=== PATIENT | male | born 1965 | race Caucasian/White ===

== ENCOUNTER 2019-03-29 06:09 | Inpatient (IN) | payer OTHER ==
[2019-03-29] MEDS ORDERED: Pantoprazole 40 MG VIAL ONE (06:26)
[2019-03-29 06:48] LABS: #Eosinphils 0.1 thou/uL (0.0-0.7); #Lymphocytes 4.3 thou/uL (1.20-3.40); #Neutrophils 10.5 thou/uL (1.40-6.50); %Basophils 0.2 % (0.0-1.0); %Eosinophils 0.7 % (0.0-10.0); %Monocytes 6.1 % (0.0-10.0); %Neutrophils 66.1 % (42.0-75.0); Hemoglobin 8.2 g/dL (14.0-18.0); Mean Corpuscular HGB CONC 34.4 g/dL (32.0-36.0); Mean Corpuscular Hemoglobin 31.3 pg (27.0-31.0); Mean Corpuscular Volume 91.1 fL (78.0-98.0); Mean Platelet Volume 7.1 fL (7.4-10.4); Platelet Count 332 thou/uL (130-400); RBC Distribution Width 12.7 % (11.5-14.5); Red Blood Cell (RBC) Count 2.62 mill/uL (4.70-6.10); White Blood Cell (WBC) Count 15.9 thou/uL (4.8-10.8)
[2019-03-29 06:59] LABS: INR-International Normal Ratio 1.1; PTT 25.1 SEC (22.9-36.1); Prothrombin Time 14.1 SEC (12.0-14.7)
[2019-03-29 07:09] LABS: ALT (SGPT) 23 U/L (8-55); AST (SGOT) 21 U/L (5-34); Albumin 3.6 g/dL (3.5-5.0); Alkaline Phosphatase 97 U/L (40-110); Anion Gap 11 mmol/L (10-20); BUN (Urea Nitrogen) 30 mg/dL (8.4-25.7); Bilirubin, Total 0.4 mg/dL (0.2-1.2); Calc. Creatinine Clearance 0 mL/min (70-130); Calcium 8.1 mg/dL (7.8-10.44); Carbon Dioxide 27 mmol/L (22-29); Chloride 105 mmol/L (98-107); Estimated GFR-MDRD 89; Globulin 2.1 g/dL (2.4-3.5); Glucose 153 mg/dL (70-105); Potassium 3.8 mmol/L (3.5-5.1); Protein, Total 5.7 g/dL (6.0-8.3); Sodium 139 mmol/L (136-145)
[2019-03-29] MEDS ORDERED: Sodium Chloride 0.9% 1,000 ML IV SCH (10:00)
[2019-03-29] MEDS ORDERED: HumaLOG 300 UNITS/3 ML VIAL SC PRN ×2 (10:37)
[2019-03-29] MEDS ORDERED: Guaifenesin DM 100-10/5 ML UDCUP PO PRN (10:37)
[2019-03-29] MEDS ORDERED: Ondansetron PF 4 MG/2 ML Vial IVP PRN (10:37)
[2019-03-29] MEDS ORDERED: Senokot S 8.6-50 MG TAB PO PRN (10:37)
[2019-03-29] MEDS ORDERED: Dextrose 5% in Water 1,000 ML IV PRN (10:37)
[2019-03-29] MEDS ORDERED: Calcium Carbonate 500 MG ChewTAB PO PRN (10:37)
[2019-03-29] MEDS ORDERED: Acetaminophen 325 MG TAB PO PRN (10:37)
[2019-03-29] MEDS ORDERED: Dextrose 50% Abboject 50 ML SYRINGE SLOW IVP PRN (10:37)
[2019-03-29] MEDS ORDERED: Bisacodyl 10 MG SUPP PR PRN (10:37)
[2019-03-29] MEDS ORDERED: Pantoprazole 80 MG in Sodium Chloride 0.9% 100 ML IVP SCH (10:45)
[2019-03-29 11:40] LABS: Hemoglobin 7.6 g/dL (14.0-18.0)
[2019-03-29] MEDS: Sodium Chloride 0.9% 1,000 ML IV SCH (11:56)
[2019-03-29] MEDS ORDERED: Lidocaine 1% PF 5 ML VIAL ONE (12:45)
[2019-03-29] MEDS ORDERED: PROPOFOL 200 MG/20 ML VIAL ONE (12:45)
[2019-03-29 13:10] VITALS: BMI 39.6
[2019-03-29] MEDS ORDERED: Fentanyl 100 MCG/2 ML VIAL ONE (13:48)
--- NOTE | 2019-03-29 14:15 | HP ---
REASON FOR ADMISSION: GI bleed, acute blood loss anemia. HISTORY OF PRESENTING ILLNESS: The patient gives history of having dark stools for almost a week. He started to have blanquita blood from yesterday evening. This happened nearly 2 to 3 times. He admits to using Aleve and Motrin for left knee pain. No prior history of bleeding per rectum. He has had prior history of gastric bypass. The patient has felt dizzy when he tries to get up and move around. He has also had palpitations on minimal ambulation from 6:00 p.m. yesterday. No prior colonoscopy. PAST MEDICAL AND SURGICAL HISTORY: History of diabetes mellitus type 2, hypertension, gastric bypass done in 2004. The patient was 405 pounds and now weighs around 315 pounds. Tonsillectomy, left knee steroid shot on the 24 of January and is due for another shot on Wednesday with his orthopedic surgeon. CURRENT MEDICATIONS: He takes: 1. Amlodipine 10 mg daily. 2. Valsartan 320 mg p.o. daily. 3. Hydrochlorothiazide 25 mg daily. ALLERGIES: NO KNOWN DRUG ALLERGIES. PERSONAL HISTORY: Does not abuse alcohol or drugs. No history of smoking. FAMILY HISTORY: Mother at the age of 96 years from natural causes. Father at the age of 67 years, he has had history of [place] and CABG. CODE STATUS: Full. Power of banking attorney is his . REVIEW OF SYSTEMS: CONSTITUTIONAL: Negative for weight loss or gain, ability to conduct usual activities. SKIN: Negative for rash, itching. EYES: Negative for double vision, pain. ENT/MOUTH: Negative for nose bleeding, neck stiffness, pain, tenderness. CARDIOVASCULAR: Negative for palpitations, dyspnea on exertion, orthopnea. RESPIRATORY: Negative for shortness of breath, wheezing, cough, hemoptysis, fever or night sweats. GASTROINTESTINAL: Negative for poor appetite, abdominal pain, heartburn, nausea , vomiting, constipation, or diarrhea. GENITOURINARY: Negative for urgency, frequency, dysuria, nocturia. MUSCULOSKELETAL: Negative for pain, swelling. NEUROLOGIC/PSYCHIATRIC: Negative for anxiety, depression. ALLERGY/IMMUNOLOGIC: Negative for skin rash, bleeding tendency. PHYSICAL EXAMINATION: GENERAL: The patient is a 54-year-old male, who is currently not in any acute distress. VITAL SIGNS: Blood pressure 126/70, pulse 110 per minute, respiratory rate 20 per minute, temperature 98.5 degrees Fahrenheit, and saturating 98% on room air. NECK: Supple. No elevated JVD. HEENT: Eyes; extraocular muscles intact. Pupils reacting to light. Oral cavity, mucous membranes are moist. No exudates or congestion. CARDIOVASCULAR SYSTEM: S1 and S2 heard. Tachycardic. RESPIRATORY SYSTEM: Air entry 1+ bilateral. No rales or rhonchi. ABDOMEN: Soft. Bowel sounds heard. No tenderness, rigidity, or guarding. EXTREMITIES: Mild peripheral edema. No calf tenderness. VASCULAR SYSTEM: Peripheral pulses 1+ bilateral. No ischemic ulcerations or gangrene. CENTRAL NERVOUS SYSTEM: No gross focal deficits noted. The patient is alert, awake, and oriented well. PSYCHIATRIC SYSTEM: The patient's mood is euthymic. No hallucinations or delusions. LABORATORY DATA: White count of 15, hemoglobin and hematocrit of 8 and 23 on arrival. A repeat hemoglobin and hematocrit are 7.6 and 22, platelet count 332 , MCV is 91 with 66% neutrophils and 27% lymphocytes. PT, INR, and PTT within normal limits. Electrolytes are stable. BUN 30, creatinine 0.8, and serum glucose 153. Liver enzymes within normal limits. Albumin 3.6. CLINICAL IMPRESSION AND PLAN: The patient will be admitted to medical floor for acute blood loss anemia with gastrointestinal bleed. He will be kept n.p.o. for now. I have spoken to Dr. Rivera, who will be doing upper endoscopy. He will be on normal saline at 70 mL/h and Protonix drip until upper endoscopy. Hemoglobin and hematocrit q.6 hourly x3, a metabolic panel in the morning. We will hold off all his hypertensive medications for now in view of the patient likely having orthostasis due to GI bleed. The patient has had a gastric bypass and states that he eats like before without any restrictions in amount. He is not compliant with bariatric diet. Job ID: [id number] [facility]
[2019-03-29] MEDS ORDERED: HYDROmorphone 2 MG/ML VIAL SLOW IVP PRN (14:22)
[2019-03-29] MEDS ORDERED: Promethazine HCl 25 MG/ML VIAL IM PRN (14:22)
[2019-03-29] MEDS ORDERED: Promethazine HCl 25 MG/ML VIAL SLOW IVP PRN (14:22)
[2019-03-29] MEDS ORDERED: Ondansetron HCl/PF 4 MG/2 ML Vial IVP PRN (14:22)
--- NOTE | 2019-03-29 15:01 | CON ---
DATE OF CONSULTATION: 03/29/2019 ADDITIONAL REFERRING PHYSICIAN: Mahesh Porras MD REASON FOR CONSULTATION: GI bleeding, anemia due to blood loss. HISTORY OF PRESENT ILLNESS: Mr. John Paul Webster is a 54-year-old male, who lives in [place], [place]. The patient has a history of pain over both knees and has some swelling of the knees. He has seen an orthopedic doctor in [place] and has had a steroid injection three months ago. He is due to have another steroid injection next week. Recently, his left knee has been bothering with swelling and pain. He has been taking Aleve and ibuprofen on a regular basis. He also takes aspirin to get some relief from the knee pain. The patient had no abdominal pain, no nausea, and no vomiting. There is no prior history of any peptic ulcer disease. The patient has had a gastric bypass surgery I believe in 2005 in [place] and had lost from 404 pounds to 240. However, he started gaining the weight back again. Now, he weighs more than 300 pounds. The patient developed some black tarry stool approximately 10 days ago. The symptoms persisted and the stools got darker and darker five days ago. A couple of days ago, he started having some fresh blood and blood-stained stool. The patient also had some mild fatigue and weakness. No dizziness. No dyspnea. He came to the ER and was found to have anemia. His admitting CBC showed hemoglobin of 8.2, today dropping to 7.6. The patient has no abdominal pain. No dyspepsia. No history of any heartburn. No dysphagia or odynophagia. The patient had no similar episodes in the past. He had no relevant symptoms. ALLERGIES: NONE. SOCIAL HISTORY: He is . He does smoke a little bit, but nothing heavy. He says occasional cigarette. Drinks socially. No drug use. MEDICAL ILLNESS: 1. Hypertension, on medical therapy. 2. Obesity, status post gastric bypass surgery with weight loss. 3. Diabetes, not taking medicines with weight loss. 4. No heart disease, no lung disease, etc. SURGERIES: 1. Gastric bypass. 2. He has had a left knee injection 2 to 3 months ago. MEDICATION LIST: Reviewed. REVIEW OF SYSTEMS: CONSTITUTIONAL: No weight loss. He has good exercise tolerance. No fever or chills. HEENT: No headache. No TIA. Eyes, no impaired vision or diplopia. Ears; no hearing loss, no discharge. Nose, no nose bleed. Throat; no sore throat, no dysphagia. NECK: No stiffness or any limitation of movement. CARDIOVASCULAR SYSTEM: No chest pain. No palpitation. No dyspnea, orthopnea, or PND. LUNGS: No chronic coughing. No hemoptysis. GASTROINTESTINAL: No abdominal pain. No dysphagia, nausea, or vomiting. As I said, he has black tarry stool and also has rectal bleeding for the last 24 hours. MUSCULOSKELETAL: History of bilateral knee pains, has steroid injection of the left knee. NEUROPSYCHIATRY: No depression or anxiety. HEMATOLOGIC: Not known. PHYSICAL EXAMINATION: GENERAL: He is obese, appears well built, in no acute distress. He is awake, alert, and communicative. He is in no distress. VITAL SIGNS: Very stable. His pulse is 98, blood pressure 126/70. HEENT: Conjunctivae are clear. NECK: Supple. No adenitis or thyromegaly noted. CARDIOVASCULAR SYSTEM: First and second heart sounds heard. LUNGS: Clear to auscultation. ABDOMEN: Soft. Abdomen is nondistended. Abdomen is nontender. No organomegaly. No masses. EXTREMITIES: Reveal no edema. LABORATORY DATA: Admitting CBC shows mild anemia with hemoglobin at 8.2, hematocrit 23.8, platelet count 236,000, polymorphs 66, lymphocytes 27, monocytes 10, and WBC 15,900. Repeat H and H at 11:20 this morning, hemoglobin dropping to 7.6 and hematocrit 22.6. Chemistry panel shows normal lytes, BUN 30, creatinine 0.89, glucose 153, calcium 8.1, bilirubin 0.4. AST 21, ALT 23, alkaline phosphatase not drawn. Albumin 2.6. CLINICAL IMPRESSION: 1. A 54-year-old male with history of black tarry stool over the last 10 days. It got worse five days ago. For the last couple of days, he has been experiencing some bright red blood per rectum. The history is somewhat confusing. From the history, I felt it was most likely upper gastrointestinal bleeding. It is also possible that bleeding from right colon is also present with dark stools. The patient has had a previous gastric bypass surgery almost 14 years ago. From the history, I believe he most likely has upper gastrointestinal bleeding. His BUN is elevated mostly from the gastrointestinal bleeding. 2. Obesity. 3. Hypertension. 4. Diabetes mellitus, status post weight loss and not taking the medicines. 5. Bilateral arthritis of both knees. RECOMMENDATIONS: We will plan for an EGD as soon as possible today. I did talk to Mr. Webster and his and explained to them that he may need a colonoscopy because of history of rectal bleeding. The patient and the patient's want to actually go back to [place], that is their hometown, and they want to see a doctor there and they does not want to wait for the colonoscopy tomorrow. However, he has agreed for EGD today. I will perform the EGD today and make further recommendations. Job ID: [id number]
[2019-03-29] MEDS ORDERED: GoLYTELY 4,000 ml Bottle PO SCH (15:45)
--- NOTE | 2019-03-29 18:06 | OP ---
DATE OF PROCEDURE: 03/29/2019 PROCEDURE PERFORMED: Esophagogastroenteroscopy. PREOPERATIVE DIAGNOSES: A 54-year-old male with previous gastric bypass surgery many years ago. The patient presents with history of black tarry stool over the last 10 days. He is anemic. The patient also has had hematochezia at the same time in the last couple of days. The patient is undergoing EGE. POSTOPERATIVE DIAGNOSIS: Normal exam. DESCRIPTION OF PROCEDURE: The patient was placed on his left lateral position and was given sedation by Anesthesia Department. A Pentax video gastroscope under direct vision passed down the oropharynx, past the GE junction into the gastric pouch. The gastric pouch was very small. The anastomotic area appears very healthy. In the esophageal mucosa, no pathology seen. The patient had no coffee ground material or any bleeding in the gastric pouch. The scope advanced into the afferent loop. In the afferent loop, no pathology seen. The scope advanced back into the efferent loop. The scope advanced down as far as scope . The mucosa appears normal. There was no pathology seen. The careful withdrawal of scope on the distal small-bowel coming to the anastomotic area showed no pathology. ENDOSCOPIC IMPRESSION: Normal exam. IMPRESSION: The patient could have bleeding from either the gastric pouch or from the colon. RECOMMENDATIONS: 1. Clear liquid diet. 2. Follow up hemoglobin and hematocrit. 3. Transfuse if blood count drops below 7. 4. Possible colonoscopy if the patient is agreeable. Job ID: [id number]
[2019-03-29 22:05] LABS: Hemoglobin 7.8 g/dL (14.0-18.0)
[2019-03-30] MEDS: Sodium Chloride 0.9% 1,000 ML IV SCH (02:47)
[2019-03-30 06:10] LABS: Anion Gap 9 mmol/L (10-20); BUN (Urea Nitrogen) 16 mg/dL (8.4-25.7); Calc. Creatinine Clearance 233 mL/min (70-130); Calcium 7.7 mg/dL (7.8-10.44); Carbon Dioxide 27 mmol/L (22-29); Chloride 107 mmol/L (98-107); Estimated GFR-MDRD Greater than 90; Glucose 92 mg/dL (70-105); Potassium 3.8 mmol/L (3.5-5.1); Sodium 139 mmol/L (136-145)
[2019-03-30] MEDS ORDERED: PROPOFOL 200 MG/20 ML VIAL ONE (10:36)
[2019-03-30] MEDS ORDERED: PHENYLEPHRINE-NS 100 MCG/ML 10 ML SYRINGE ONE (10:36)
[2019-03-30 11:01] LABS: #Eosinphils 0.1 thou/uL (0.0-0.7); #Lymphocytes 2.1 thou/uL (1.20-3.40); #Monocytes 0.5 thou/uL (0.11-0.59); #Neutrophils 4.9 thou/uL (1.40-6.50); %Basophils 0.3 % (0.0-1.0); %Eosinophils 0.8 % (0.0-10.0); %Lymphocytes 27.5 % (21.0-51.0); %Monocytes 6.8 % (0.0-10.0); %Neutrophils 64.6 % (42.0-75.0); Hemoglobin 7.3 g/dL (14.0-18.0); Mean Corpuscular HGB CONC 34.5 g/dL (32.0-36.0); Mean Corpuscular Hemoglobin 31.4 pg (27.0-31.0); Mean Platelet Volume 6.9 fL (7.4-10.4); Platelet Count 240 thou/uL (130-400); Red Blood Cell (RBC) Count 2.31 mill/uL (4.70-6.10); White Blood Cell (WBC) Count 7.5 thou/uL (4.8-10.8)
--- NOTE | 2019-03-30 12:45 | PDOC.HOSPP ---
- Subjective Encounter Date: 03/30/19 Encounter Time: 09:30 Subjective: Finished bowel prep, no fresh bleeding. at bedside. - Objective Vital Signs & Weight: Vital Signs (12 hours) Temp Pulse Resp BP Pulse Ox 03/30/19 07:35 98.1 F 79 18 116/76 94 L 03/30/19 07:00 98.0 F 80 18 108/72 98 03/30/19 02:59 98.3 F 82 18 103/68 95 Weight Weight 309 lb I&O: 03/29/19 03/30/19 03/31/19 06:59 06:59 06:59 Intake Total 350 Balance 350 Result Diagrams: 03/30/19 10:52 03/30/19 05:33 Additional Labs: Accuchecks 03/30/19 03/29/19 03/29/19 05:19 19:32 15:38 POC Glucose 103 186 H 107 Hospitalist ROS - Medication Medications: Active Medications Generic Name Dose Route Start Last Admin Trade Name Freq PRN Reason Stop Dose Admin Sodium Chloride 1,000 mls @ 70 mls/hr 03/29/19 10:45 03/30/19 02:47 Normal Saline 0.9% IV 03/30/19 15:19 Not Given .[id number] VANCE Sodium Chloride 10 ml 03/29/19 21:00 03/30/19 10:09 Flush - Normal Saline IVF Not Given Q12HR VANCE - Exam General Appearance: NAD, awake alert Eye: PERRL, anicteric sclera Eye - other findings: pallor ENT: no oropharyngeal lesions, moist mucosa Neck: supple, no JVD Heart: RRR, no murmur Respiratory: no wheezes, no rales Gastrointestinal: soft, non-tender, non-distended, normal bowel sounds, no guarding, no rigidity Extremities: no cyanosis, no edema Neurological: cranial nerve grossly intact, no focal deficits Psychiatric: normal affect, A&O x 3 Hosp A/P (1) GI bleed Code(s): K92.2 - GASTROINTESTINAL HEMORRHAGE, UNSPECIFIED Status: Acute Qualifiers: GI bleed type/associated pathology: anorectal hemorrhage Qualified Code(s) : K62.5 - Hemorrhage of anus and rectum (2) Acute blood loss anemia Code(s): D62 - ACUTE POSTHEMORRHAGIC ANEMIA Status: Acute (3) Obesity (BMI 30-39.9) Code(s): E66.9 - OBESITY, UNSPECIFIED Status: Chronic (4) HTN (hypertension) Code(s): I10 - ESSENTIAL (PRIMARY) HYPERTENSION Status: Chronic Qualifiers: Hypertension type: essential hypertension Qualified Code(s): I10 - Essential (primary) hypertension - Plan received one unit PRBC yesterday EGD did not reveal any acute source of bleeding for colonoscopy today will check CBC in AM not dizzy anymore, discussed with patient and will resume HTN meds when stable
--- NOTE | 2019-03-30 16:59 | OP ---
DATE OF PROCEDURE: 03/30/2019 PREOPERATIVE DIAGNOSIS: Gastrointestinal hemorrhage and anemia of acute blood loss. PROCEDURE PERFORMED: Colonoscopy DESCRIPTION OF PROCEDURE: Informed consent was obtained from the patient. He was sedated with total intravenous anesthesia. The rectal exam was performed and was normal. The colonoscope was advanced without difficulty to the terminal ileum. The mucosa of the terminal ileum was normal; however, there was staining of black material consistent with prior bleeding proximal to the terminal ileum. The appendiceal orifice and ileocecal valve were clearly identified in cecum. Again , there was staining of black stool in the right and mid colon. This was washed with irrigation, and there was no bleeding source or large lesions present. However, small polyps could have been obscured by the suboptimal bowel prep. There was mild diverticulosis in the sigmoid colon. The remainder of the colonic mucosa was normal. Retroflexed views in the rectum were unremarkable. IMPRESSION: 1. Black stool staining in the ileum and right and mid colon indicating previous bleeding proximal to the terminal ileum. He has been on NSAIDs. He could have had bleeding from his distal anastomosis site, status post Albino-en-Y gastric bypass or anywhere in the small bowel considering the NSAID use. Esophagogastroduodenoscopy by Dr. Rivera yesterday was negative for bleeding source. 2. Mild sigmoid diverticulosis. 3. Otherwise normal colonoscopy to the terminal ileum. 4. The bowel prep was not adequate to identify small polyps for screening purposes. RECOMMENDATIONS: 1. If he has recurrent overt bleeding, then obtain a nuclear medicine abdominal bleeding scan. 2. Follow up as an outpatient in GI Clinic. He states he plans to do this in [place], [place] which is closer to his home. Screening colonoscopy should be scheduled in light of the suboptimal prep in the right and transverse colon. He states he does not intend to follow through with that recommendation, however it was advised to him and his . 3. If his anemia does not resolve by avoidance of NSAIDs, then capsule endoscopy is the next step. 4. Stop NSAIDs. He was advised that he can take acetaminophen for his knee pain , however he must not drink alcohol while on acetaminophen. Job ID: [id number] [facility]
[2019-03-31 05:45] LABS: #Eosinphils 0.1 thou/uL (0.0-0.7); #Lymphocytes 1.8 thou/uL (1.20-3.40); #Monocytes 0.5 thou/uL (0.11-0.59); #Neutrophils 4.3 thou/uL (1.40-6.50); %Basophils 0.4 % (0.0-1.0); %Lymphocytes 27.1 % (21.0-51.0); %Monocytes 7.1 % (0.0-10.0); %Neutrophils 64.3 % (42.0-75.0); Hemoglobin 6.8 g/dL (14.0-18.0); Mean Corpuscular HGB CONC 34.2 g/dL (32.0-36.0); Mean Corpuscular Hemoglobin 30.8 pg (27.0-31.0); Mean Corpuscular Volume 90.2 fL (78.0-98.0); Mean Platelet Volume 6.8 fL (7.4-10.4); Platelet Count 236 thou/uL (130-400); RBC Distribution Width 12.7 % (11.5-14.5); Red Blood Cell (RBC) Count 2.22 mill/uL (4.70-6.10); White Blood Cell (WBC) Count 6.6 thou/uL (4.8-10.8)
[2019-03-31 06:05] LABS: Anion Gap 9 mmol/L (10-20); BUN (Urea Nitrogen) 9 mg/dL (8.4-25.7); Calc. Creatinine Clearance 226 mL/min (70-130); Calcium 7.8 mg/dL (7.8-10.44); Carbon Dioxide 26 mmol/L (22-29); Chloride 108 mmol/L (98-107); Estimated GFR-MDRD Greater than 90; Glucose 90 mg/dL (70-105); Potassium 3.8 mmol/L (3.5-5.1); Sodium 139 mmol/L (136-145)
--- NOTE | 2019-03-31 11:41 | PRG ---
DATE OF SERVICE: 03/31/2019 SUBJECTIVE: This is a 54-year-old male, hospitalized 3 days ago with anemia due to blood loss, history of black tarry stool. No hematochezia. He had esophagoenteroscopy by me 2 days ago, which was negative. The patient has had previous gastric bypass. He underwent colonoscopy by Dr. Margarito Mike and he was found to have coffee-ground material coating the ileal mucosa and also right colon, etc. He had minimal sigmoid diverticular disease. His blood count has been dropping down slowly. Yesterday, his blood count was hemoglobin 7.3, hematocrit 21. Today, it dropped to 6.8 and hematocrit 20. He has no symptoms. No dizziness or dyspnea. He has had no stool tonight and this morning. He is tolerating a regular diet. OBJECTIVE: VITAL SIGNS: Afebrile, pulse is 78, blood pressure 123/70. CARDIOVASCULAR SYSTEM: Within normal limits. LUNGS: Within normal limits. ABDOMEN: Soft. No organomegaly. No tenderness. No masses. PLAN: 1. Transfuse one more unit of blood. 2. If he does well after transfusion and has no constant bleeding, may consider discharge. He hails from [place], [place] and he will see a utilization coordinator when he goes back to his hometown. If he had recurrence of bleeding, consider tagged RBC scan. Job ID: [id number]
[2019-03-31 15:36] VITALS: BP 139/80; TEMP 98.5
--- NOTE | 2019-03-31 16:04 | DIS ---
DATE OF ADMISSION: 03/29/2019 DATE OF DISCHARGE: 03/31/2019 DISCHARGE DISPOSITION: To home. PRIMARY DISCHARGE DIAGNOSES: 1. Gastrointestinal bleed, unclear etiology. 2. Acute blood loss anemia, status post 2 units of packed cell transfusion. SECONDARY DISCHARGE DIAGNOSES: 1. Hypertension. 2. Obesity. PROCEDURES DONE DURING HOSPITALIZATION: The patient has had colonoscopy done which showed black stool staining in the ileum and in the right and mid colon indicating previous bleeding proximal to the terminal ileum. Mild sigmoid diverticulosis. Bowel prep was not adequate to identify small polyps for screening purposes. Upper endoscopy done on 03/29/[address] Rivera showed essentially a normal exam. Hemoglobin and hematocrit had dropped down to 6.8 and 20. He was given 2 units of packed cell transfusion. MCV is 91, platelet count is 236. PT, INR, PTT within normal limits. BUN 9, creatinine 0.7, admitting BUN was 30. DISCHARGE MEDICATIONS: 1. Ferrous sulfate 325 mg p.o. twice daily. 2. Protonix 40 mg p.o. daily. 3. Vitamin C 500 mg p.o. daily. 4. The patient to continue amlodipine, valsartan, hydrochlorothiazide 10/320/25 mg one tablet daily from day after. ALLERGIES: NO KNOWN DRUG ALLERGIES. DISCHARGE PLAN: The patient to follow up with his primary care physician in 1 week. He also will benefit from outpatient consultation with retirement administrator in [facility]. BRIEF COURSE DURING HOSPITALIZATION: The patient initially came in with complaints of dark stools for almost a week, which later turned into blanquita blood. On arrival, the patient had hemoglobin of 7.2 g. He was kept n.p.o. and has had consultation with Dr. Rivera for Gastroenterology. He had upper endoscopy done, which did not reveal any acute bleeding pathology. He was prepped and had a colonoscopy done the next day by Dr. Margarito Mike. This did not reveal any acute bleeding, but had black stool staining in the ileum and right and mid colon indicating bleeding proximal to terminal ileum. He has had serial hemoglobin and hematocrit done and was given 2 units of packed cell transfusion. On arrival, he had dizziness and exertional tachycardia which have resolved now. The patient prefers to follow up with retirement administrator in [facility]. He came here to this area to attend a conference. He is hemodynamically stable. Please note, I have seen and examined the patient on the day of discharge. Job ID: [id number] [facility]
--- NOTE | 2019-04-02 21:54 | PQF ---
[employer] Inspector Of Weights And Measures Crystal Reports Winform ViewerWHSEVERO ROGERS VINAYA KUMAR MD [id number] [id number] CLINICAL DOCUMENTATION CLARIFICATION FORM: POST DISCHARGE Addendum to original discharge summary date: ____ Late entry note date: __ DATE: 04/02/19 ATTN:Mahesh Porras Please exercise your independent, professional judgment in responding to the clarification form. Clinical indicators are provided on the bottom of this form for your review Can you please further clarify the etiology of GI bleeding? Please check appropriate box(s): [ ] GI bleed due Sigmoid Diverticulosis [ ] GI bleed due to complication of recent gastric bypass [ ] GI bleed of unknown etiology [ ] Other diagnosis please specify [ x ] Unable to determine In addition, please specify: Present on Admission (POA): [ ] Yes [ ] No [ ] Unable to determine For continuity of documentation, please document condition throughout progress notes and discharge summary. Thank You. CLINICAL INDICATORS - SIGNS / SYMPTOMS / LABS OP Report 03/30 pg.1- Black stool staining in the ileum and right and mid colon , indicating bleeding proximal to the terminal ileum OP Report 03/30 pg.1-he could have bleeding from his distal anastomosis site, s/ p Albino-en-Y gastric bypass OP Report 03/30 pg.1-Mild sigmoid diverticulosis DS pg.1- Gastrointestinal bleeding, unclear etiology RISK FACTORS Hx of black tarry stool- PN 03/31 pg.1 Previous gastri bypass- PN 03/31 pg.1 acute blood loss anemia- DS pg.1 Obesity- DS pg.1 TREATMENTS: GI Consult Dr. Rivera Blood transfusion03/29 IV fluids- MAR EGD- OP report 03/29 Colonoscopy- OP report 03/30 H and H monitoring- Laboratory (This form is maintained as a part of the permanent medical record) 2014 [employer]. All Rights Reserved Severo HARRISON
== END 2019-03-31 16:29 | disposition home or self-care (01) | DRG 378 ==
LOC: ERS 06:09 → T4-B 07:20
PROVIDERS: ADMIT Internal Medicine; ATTEND Internal Medicine
PROC: 0DJ08ZZ Inspection of Upper Intestinal Tract, Via Natural or Artificial Opening Endoscopic (ICD-10-PCS; principal; 2019-03-29)
PROC: 30233N1 Transfusion of Nonautologous Red Blood Cells into Peripheral Vein, Percutaneous Approach (ICD-10-PCS; 2019-03-29)
PROC: 0DJD8ZZ Inspection of Lower Intestinal Tract, Via Natural or Artificial Opening Endoscopic (ICD-10-PCS; 2019-03-30)
DX: K92.2 Gastrointestinal hemorrhage, unspecified (principal); D62 Acute posthemorrhagic anemia; I10 Essential (primary) hypertension; E11.9 Type 2 diabetes mellitus without complications; K57.30 Diverticulosis of large intestine without perforation or abscess without bleeding; F17.210 Nicotine dependence, cigarettes, uncomplicated; E66.9 Obesity, unspecified; M17.0 Bilateral primary osteoarthritis of knee; Z98.84 Bariatric surgery status; Z79.899 Other long term (current) drug therapy; Z68.39 Body mass index [BMI] 39.0-39.9, adult; Z91.11 Patient's noncompliance with dietary regimen
CPT/HCPCS: 36415; 36416; 36430; 80048; 80053; 85025; 85610; 85730; 86850; 86900; 86901; 96361; 96374; C9113; J2001; J2704; J3010; P9016